=== PATIENT | female | born 1990 | race Caucasian/White ===

== ENCOUNTER 2017-02-08 08:35 | Emergency (ER) | payer BC ==
[~2017-02-08] VITALS: Ht 167.6 cm; Wt 58.5 kg
[~2017-02-08 08:35] MED LIST: ALPR1TAB2 PO; AMOX125S4 PO; CITA10TA4 PO; CITA10TA8 PO; CLON0.5T PO; DIPH25CA58 PO; EPIN0.3A4 IJ; HYDR-2666 PO; PRED50TA PO
[2017-02-08] MEDS ORDERED: IV NORMAL SALINE 1000ML BAG 1,000 ML IV ONE (09:30)
[2017-02-08] MEDS ORDERED: diphenhydrAMINE 50 MG/ML VIAL IVP ONE (09:45)
[2017-02-08] MEDS ORDERED: DEXAMETHASONE SOD PHOS 4 MG/ML VIAL IV ONE (09:45)
[2017-02-08] MEDS ORDERED: METOCLOPRAMIDE HCL 10 MG/2 ML VIAL. IV ONE (09:45)
[2017-02-08 09:56] LABS: BASO # 0.1 x10^3/uL (0.0-0.2); BASO % 1 % (0-3); EOS % 2 % (0-3); HEMOGLOBIN 12.7 g/dL (12.0-15.5); LYMPH # 1.7 x10^3/uL (1.0-4.8); LYMPH % 27 % (24-48); MEAN CORPUSCULAR HEMOGLOBIN 30 pg (25-35); MEAN CORPUSCULAR HGB CONC 33 g/dL (31-37); MEAN CORPUSCULAR VOLUME 91 fL (79-100); MONO % 6 % (0-9); NEUT % 63 % (31-73); PLATELET COUNT 350 x10^3/uL (140-400); RED BLOOD COUNT 4.18 x10^6/uL (3.50-5.40); RED CELL DISTRIBUTION WIDTH 13.3 % (11.5-14.5); WHITE BLOOD COUNT 6.1 x10^3/uL (4.0-11.0)
[2017-02-08 09:57] LABS: BARBITURATES NEG (NEG); BENZODIAZEPINES NEG (NEG); CANNABINOIDS NEG (NEG); COCAINE NEG (NEG); METHADONE NEG (NEG); OPIATES NEG (NEG); PHENCYCLIDINE NEG (NEG)
[2017-02-08 09:57] LABS: CALCIUM 9.2 mg/dL (8.5-10.1); CREATININE 0.7 mg/dL (0.6-1.0); GFR 102.8; POTASSIUM 4.7 mmol/L (3.5-5.1)
[2017-02-08 10:02] LABS: ALBUMIN 4.4 g/dL (3.4-5.0); ALBUMIN/GLOBULIN RATIO 1.8 (1.0-1.7); TOTAL BILIRUBIN 0.7 mg/dL (0.2-1.0); TOTAL PROTEIN 6.8 g/dL (6.4-8.2)
[2017-02-08 10:17] VITALS: BP 117/82
--- NOTE | 2017-02-08 10:18 | ED.ADGEN ---
Past Medical History Past Medical History: Anxiety, Depression, Other Additional Past Medical Histor: BRAIN BLEED, brain mass Past Surgical History: Tonsillectomy, Other Additional Past Surgical Histo: BRAIN SURGERY x3-CUPOLA HOIST OPERATOR SHUNT PLACEMENT, breast sx Alcohol Use: Occasionally Drug Use: None Adult General Chief Complaint Chief Complaint: BLURRED/DOUBLE VISION HPI HPI Patient is a 26 year old woman, history of multiple brain surgeries, history of "brain mass", "brain bleed", CUPOLA HOIST OPERATOR shunt, who follows with Dr. Chilel, who presents emergency department with multiple complaints. Patient states that she' s been experiencing headache, some blurred vision, some eye pain, also experiencing nausea, and diarrhea over the past 2 weeks. She states she has spoken with Dr. Chilel and his office about this issue, and is currently being scheduled for an outpatient MRI. She complains of a "low-grade fever", last use medication yesterday, is afebrile in the emergency department without antipyretics. Denies any rashes, any travel or surgery, any swelling of the extremities, any injuries, any vomiting, any focal weakness, numbness or tingling, states that she will have episodes of "tingling all over my entire body", and also episodes of chest pain. Patient's mother is present with her at bedside. Patient states she also has a poor appetite. Review of Systems Review of Systems Constitutional: Denies fever or chills. [] Eyes: Blurry vision with headache. HENT: Denies nasal congestion or sore throat. [] Respiratory: Denies cough or shortness of breath. [] Cardiovascular: No edema, complaining of intermittent chest pain associated with the other symptoms including tingling throughout her body and headache. [] GI: Denies abdominal pain, nausea, no vomiting, no bloody stools, positive for diarrhea over the past 2 weeks. : Denies dysuria. [] Musculoskeletal: Denies back pain or joint pain. [] Integument: Denies rash. [] Neurologic: Denies focal weakness or sensory changes. Headache, frontal, tingling throughout her body. Endocrine: Denies polyuria or polydipsia. [] Lymphatic: Denies swollen glands. [] Psychiatric: Denies depression or anxiety. [] Current Medications Current Medications Current Medications Medications (Trade) Dose Ordered Sig/Yun Start Time Stop Time Status Last Admin Dose Admin Dexamethasone Sodium Phosphate (Decadron) 4 mg 1X ONCE 02/08/17 09:45 02/08/17 09:46 DC 02/08/17 10:12 4 MG Diphenhydramine HCl (Benadryl) 25 mg 1X ONCE 02/08/17 09:45 02/08/17 09:46 DC 02/08/17 10:12 25 MG Lidocaine HCl (Xylocaine-Mpf 1% Vial) 4 ml 1X ONCE 02/08/17 10:45 02/08/17 10:48 DC 02/08/17 11:25 4 ML Metoclopramide HCl (Reglan) 10 mg 1X ONCE 02/08/17 09:45 02/08/17 09:46 DC 02/08/17 10:11 10 MG Sodium Chloride 1,000 ml @ 1,000 mls/hr 1X ONCE 02/08/17 09:30 02/08/17 10:29 DC 02/08/17 09:32 1,000 MLS/HR Allergies Allergies Allergies Coded Allergies Type Severity Reaction Last Updated Verified morphine Allergy Unknown dilaudid ok 07/03/16 Yes Physical Exam Physical Exam Constitutional: Well developed, well nourished, no acute distress, non-toxic appearance. [] Light is off in the room due to photophobia. HENT: Normocephalic, atraumatic, bilateral external ears normal, oropharynx moist, no oral exudates, nose normal. [] Eyes: PERRLA, EOMI, conjunctiva normal, no discharge. [] Neck: Normal range of motion, no tenderness, supple, no stridor. [] Cardiovascular:Heart rate regular rhythm, no murmur , S1, S2, no rubs or gallops. [] Lungs & Thorax: Bilateral breath sounds clear to auscultation, no wheezing, rhonchi, rales. Patient with mild chest wall tenderness in the left anterior chest wall, also in the right anterior chest wall, no crepitus. No lesions or other maladies identified. Abdomen: Bowel sounds normal, soft, no rebound, rigidity, no guarding, no tenderness, no masses, no pulsatile masses. [] Skin: Warm, dry, no erythema, no rash. [] Back: No tenderness, no CVA tenderness. [] Extremities: No tenderness, no cyanosis, no clubbing, ROM intact, no edema. [] Neurologic: Alert and oriented X 3, normal motor function, normal sensory function, no focal deficits noted. [No nystagmus.] Psychologic: Affect normal, judgement normal, mood normal. [] Current Patient Data Vital Signs Vital Signs Date Time Temp Pulse Resp B/P (MAP) Pulse Ox O2 Delivery O2 Flow Rate FiO2 02/08/17 11:25 100 Room Air 02/08/17 10:17 80 18 117/82 (94) 02/08/17 08:47 98.1 98.1 Lab Values Laboratory Tests Test 02/08/17 08:05 02/08/17 08:55 02/08/17 09:30 POC Urine HCG, Qualitative Hcg negative (Negative) Urine Opiates Screen Neg (NEG) Urine Methadone Screen Neg (NEG) Urine Barbiturates Neg (NEG) Urine Phencyclidine Screen Neg (NEG) Urine Amphetamine/Methamphetamine Pos (NEG) Urine Benzodiazepines Screen Neg (NEG) Urine Cocaine Screen Neg (NEG) Urine Cannabinoids Screen Neg (NEG) Urine Ethyl Alcohol Neg (NEG) White Blood Count 6.1 x10^3/uL (4.0-11.0) Red Blood Count 4.18 x10^6/uL (3.50-5.40) Hemoglobin 12.7 g/dL (12.0-15.5) Hematocrit 38.0 % (36.0-47.0) Mean Corpuscular Volume 91 fL (79-100) Mean Corpuscular Hemoglobin 30 pg (25-35) Mean Corpuscular Hemoglobin Concent 33 g/dL (31-37) Red Cell Distribution Width 13.3 % (11.5-14.5) Platelet Count 350 x10^3/uL (140-400) Neutrophils (%) (Auto) 63 % (31-73) Lymphocytes (%) (Auto) 27 % (24-48) Monocytes (%) (Auto) 6 % (0-9) Eosinophils (%) (Auto) 2 % (0-3) Basophils (%) (Auto) 1 % (0-3) Neutrophils # (Auto) 3.9 x10^3uL (1.8-7.7) Lymphocytes # (Auto) 1.7 x10^3/uL (1.0-4.8) Monocytes # (Auto) 0.4 x10^3/uL (0.0-1.1) Eosinophils # (Auto) 0.1 x10^3/uL (0.0-0.7) Basophils # (Auto) 0.1 x10^3/uL (0.0-0.2) Sodium Level 140 mmol/L (136-145) Potassium Level 4.7 mmol/L (3.5-5.1) Chloride Level 105 mmol/L (98-107) Carbon Dioxide Level 27 mmol/L (21-32) Anion Gap 8 (6-14) Blood Urea Nitrogen 17 mg/dL (7-20) Creatinine 0.7 mg/dL (0.6-1.0) Estimated GFR (Cockcroft-Gault) 102.8 BUN/Creatinine Ratio 24 (6-20) H Glucose Level 74 mg/dL (70-99) Calcium Level 9.2 mg/dL (8.5-10.1) Total Bilirubin 0.7 mg/dL (0.2-1.0) Aspartate Amino Transferase (AST) 14 U/L (15-37) L Alanine Aminotransferase (ALT) 17 U/L (14-59) Alkaline Phosphatase 42 U/L (46-116) L Troponin I Quantitative < 0.017 ng/mL (0.000-0.055) Total Protein 6.8 g/dL (6.4-8.2) Albumin 4.4 g/dL (3.4-5.0) Albumin/Globulin Ratio 1.8 (1.0-1.7) H Laboratory Tests 02/08/17 09:30 Laboratory Tests 02/08/17 09:30 EKG EKG EC: Sinus rhythm, heart rate 96 beats minute, upright axis, QTC of 45, NV of 110, QRS of 94, no ST elevations or depressions, no evidence of acute ST abnormalities. As interpreted by me. Radiology/Procedures Radiology/Procedures [][facility] [address] [facility] [place] [address] IMAGING REPORT Signed PATIENT: JAYRO RAY ACCOUNT: [id number] : 1990 LOCATION: ER AGE: 26 SEX: F EXAM STATUS: REG ER ORD. PHYSICIAN: DENI ADAMS DO REASON: PATHAK/Blurry vision/Hx CUPOLA HOIST OPERATOR shunt PROCEDURE: CT HEAD WO CONTRAST Indication headache. Blurred vision. The patient. Noncontrast images of the head were obtained and are compared to an examination 07/03/2016. No acute calvarial finding is seen. Visualized paranasal sinuses appear normal. Shunt tubing is noted unchanged relative to the previous exam. The ventricles remain slitlike in appearance again similar to the previous study. There is no subdural or epidural hematoma. 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 There is no hemorrhage. A new finding is not seen. A significant change relative to the prior exam is not seen. IMPRESSION: No acute finding. No significant change. Chronic changes are noted. PQRS Compliance Statement: One or more of the following individualized dose reduction techniques were utilized for this examination: 1. Automated exposure control 2. Adjustment of the mA and/or kV according to patient size 3. Use of iterative reconstruction technique DICTATED and SIGNED BY: CHELSEA DONAHUE MD DATE: 02/08/17 1019 CC: DENI ADAMS DO; UNKNOWN PCP NAME ~ Impressions: [facility] [address] [place], [place] [id number] IMAGING REPORT Signed PATIENT: JAYRO RAY ACCOUNT: [id number] : 1990 LOCATION: ER AGE: 26 SEX: F EXAM [id number]; [id number] STATUS: REG ER ORD. PHYSICIAN: DENI ADAMS DO REASON: CUPOLA HOIST OPERATOR shunt PROCEDURE: CHEST PA & LATERAL; KUB; SKULL 2V Chest, 2 views, 02/08/2017: History: Headache, blurry vision, check CUPOLA HOIST OPERATOR shunt Comparison is made to a study from 07/03/2016. The heart size and pulmonary vascularity are normal. The lungs are clear. There is no evidence of pleural fluid. The CUPOLA HOIST OPERATOR shunt tubing overlying the right chest is unremarkable. IMPRESSION: No acute cardiopulmonary abnormality is detected. Skull, 2 views, 02/08/2017: A CUPOLA HOIST OPERATOR shunt tube remains in place extending into the skull on the right with its tip lying near the midline. The tube appears to be unchanged since 06/19/2016. KUB, 02/08/2017: The CUPOLA HOIST OPERATOR shunt tube extends into the left midabdomen laterally. The abdominal gas pattern is unremarkable. An IUD is projected over the mid pelvis. No organomegaly is evident. IMPRESSION: The CUPOLA HOIST OPERATOR shunt tube extends into the left midabdomen. DICTATED and SIGNED BY: ACE DORSEY MD DATE: 02/08/17 1020 CC: DENI ADAMS DO; UNKNOWN PCP NAME ~ Course & Med Decision Making Course & Med Decision Making Pertinent Labs and Imaging studies reviewed. (See chart for details) Patient complaining of pain in her head, tingling throughout her body, and diarrhea. I did discuss all of these complaints with Jasmyne, nurse practitioner for the patient's neurosurgeon. She states that the complaints have been persistent for the past several weeks, and the office is aware of these issues. The patient has been approved for an outpatient MRI, they recommend at this point the patient receiving a CT of the head and a shunt series with x-rays in the emergency department without any occult abnormalities, and the patient proceeded to her outpatient MRI unless some abdomen allergies are identified. Laboratory studies also ordered due to patient's report of diarrhea. Patient and mother at bedside are agreeable with plan. Patient received IV fluids, Decadron, Reglan and Benadryl in the emergency department for headache symptoms. Laboratory studies were unremarkable, patient without any further nausea, vomiting or diarrhea in the emergency department. CT of the head was unremarkable, as was the shunt series. I did discuss the signs and patient, she states she is feeling silly better, she is now also received nebulized lidocaine , she states her headache is improved, pain is down to "wear usually is", but is 7 for her, and she is ready to be discharged home. Discussed return precautions, patient has been contacted by the office during her ED visit, and now is an appointment for an MRI scheduled for tomorrow morning at 9:15, patient follow up with Dr. Chilel to be cleared for return to work. Patient voiced understanding and agreement with return precautions and instructions, discharged home with mother in stable condition with plan as above. Dragon Disclaimer Dragon Disclaimer This electronic medical record was generated, in whole or in part, using a voice recognition dictation system. Departure Impression: Primary Impression: Headache Disposition: 01 HOME, SELF-CARE Condition: IMPROVED DENI ADAMS DO February 08, 2017 10:17
--- NOTE | 2017-02-08 10:26 | RAD ---
Indication headache. Blurred vision. The patient. Noncontrast images of the head were obtained and are compared to an examination 07/03/2016. No acute calvarial finding is seen. Visualized paranasal sinuses appear normal. Shunt tubing is noted unchanged relative to the previous exam. The ventricles remain slitlike in appearance again similar to the previous study. There is no subdural or epidural hematoma. 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 There is no hemorrhage. A new finding is not seen. A significant change relative to the prior exam is not seen. IMPRESSION: No acute finding. No significant change. Chronic changes are noted. PQRS Compliance Statement: One or more of the following individualized dose reduction techniques were utilized for this examination: 1. Automated exposure control 2. Adjustment of the mA and/or kV according to patient size 3. Use of iterative reconstruction technique
--- NOTE | 2017-02-08 10:26 | RAD ---
Chest, 2 views, 02/08/2017: History: Headache, blurry vision, check SURVEY FIELD TECHNICIAN shunt Comparison is made to a study from 07/03/2016. The heart size and pulmonary vascularity are normal. The lungs are clear. There is no evidence of pleural fluid. The SURVEY FIELD TECHNICIAN shunt tubing overlying the right chest is unremarkable. IMPRESSION: No acute cardiopulmonary abnormality is detected. Skull, 2 views, 02/08/2017: A SURVEY FIELD TECHNICIAN shunt tube remains in place extending into the skull on the right with its tip lying near the midline. The tube appears to be unchanged since 06/19/2016. KUB, 02/08/2017: The SURVEY FIELD TECHNICIAN shunt tube extends into the left midabdomen laterally. The abdominal gas pattern is unremarkable. An IUD is projected over the mid pelvis. No organomegaly is evident. IMPRESSION: The SURVEY FIELD TECHNICIAN shunt tube extends into the left midabdomen.
[2017-02-08] MEDS ORDERED: LIDOCAINE 1% PF 2 ML VIAL. NEB ONE (10:45)
--- NOTE | 2017-02-09 07:04 | EKG ---
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
== END 2017-02-08 13:31 | disposition home or self-care (01) ==
LOC: ER 08:35
DX: R51 Headache (principal); H53.8 Other visual disturbances; R19.7 Diarrhea, unspecified; F32.9 Major depressive disorder, single episode, unspecified; F41.9 Anxiety disorder, unspecified; Z98.890 Other specified postprocedural states
CPT/HCPCS: 36415; 70250; 70450; 71020; 74000; 80053; 80305; 80320; 84484; 84703; 85027; 93005; 94640; 96361; 96374; 96375; 99285; J1100; J1200; J2765; J7030; 81025; G0481

== ENCOUNTER → 2017-02-09 | Outpatient (CLI) | payer BC ==
[2017-02-08 10:17] VITALS: BP 117/82
[~2017-02-09] MED LIST changes: +GADOBUTROL 7.5 MMOL/7.5 ML VIAL IV ONE
--- NOTE | 2017-02-09 12:09 | RAD ---
MR BRAIN WITH CONTRAST HISTORY: VISION CHANGES, HX OF REPEATER CHIEF SHUNT PLACEMENT, PRIOR MRIs, 5ML GADAVIST COMPARISON: MRI brain from 11/12/2014 TECHNIQUE: Axial diffusion-weighted imaging was obtained. Additional axial FLAIR, and axial T2 weighted images were obtained. Sagittal and axial T1-weighted imaging was obtained prior to the administration of intravenous contrast material. Additional sagittal, axial, and coronal T1-weighted imaging was obtained after the administration of gadolinium based intravenous contrast material. 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 This is stable to mildly decreased in size when compared to the prior exam from 11/12/2014. No new lesions are identified. No evidence for acute intracranial hemorrhage. The cavernoma abuts the cerebral aqueduct with ventricles remain unchanged in size and are slitlike likely due to the presence of a right frontal ventriculostomy catheter. Midline structures demonstrate a mildly prominent pituitary gland and young adults. No restricted diffusion to suggest acute or recent infarct. Basal cisterns are patent. Arterial flow voids at the level of skull base are maintained. Globes and orbits are within normal limits. Paranasal sinuses and mastoid air cells are clear. 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 This lies medially adjacent to the cerebral aqueduct but there is no hydrocephalus. A right frontal ventriculostomy catheter is stable in position. Electronically signed by: Mirza Garcia MD (02/09/2017 12:06 PM)
== END | disposition home or self-care (01) ==
LOC: MRI 09:26
PROVIDERS: ATTEND Neurological Surgery
DX: G91.9 Hydrocephalus, unspecified (principal)
CPT/HCPCS: 70553; A9585